=== PATIENT | male | born 1980 | race African-American/Black ===

== ENCOUNTER 2018-03-18 10:25 | Emergency (ER) | END 2018-03-18 13:00 | disposition home or self-care (01) ==

== ENCOUNTER 2018-09-13 01:11 | Emergency (ER) | payer SELFPAY ==
[~2018-09-13] VITALS: Ht 175.3 cm; Wt 88.6 kg
[~2018-09-13 01:11] MED LIST: ACET500C5 PO; BACITUD TOP; ONDA4TAB8 PO
[2018-09-13 01:14] VITALS: BP 141/96; PULSE 61; RESP 18; Ht 175.3 cm; Wt 88.6 kg
== END 2018-09-13 07:50 | disposition left against medical advice (07) ==
LOC: FTE 01:11
DX: Z53.21 Procedure and treatment not carried out due to patient leaving prior to being seen by health care provider (principal)

== ENCOUNTER 2018-10-23 06:08 | Emergency (ER) | payer OTHER ==
[~2018-10-23] VITALS: Ht 172.7 cm; Wt 80.1 kg
[2018-10-23 06:17] VITALS: Ht 172.7 cm; Wt 80.1 kg
--- NOTE | 2018-10-23 07:53 | ERD ---
ER Documentation Chief Complaint Chief Complaint FELL WHILE CLIMBING STAIR,R ANKLE PAIN(BRACE AND CAST ON R ANKLE) X2 HOURS. HPI This is a 38-year-old male who is presenting with persistent right ankle pain. The patient fell previously and fractured his right ankle. The patient is currently in a cast and also has a Ortho shoe to help with mobilization. The patient is scheduled to have his cast removed in approximately 2 weeks. This morning while walking up stairs, the patient reports losing his balance. He fell back and hit his right ankle. He currently endorses ankle pain. The patient also endorses hitting his head mildly. He denies any loss of consciousness. He does not endorse any current headache or vision changes or neck pain. He does not endorse any other trauma or injury. He does not endorse any alleviating or exacerbating factors. The patient denies feeling sick recently. The patient denies fever or chills. The patient does not endorse back pain. The patient denies lightheadedness or dizziness. The patient has had no chest pain or trouble breathing. The patient denies nausea or vomiting. The patient denies abdominal pain. The patient denies changes to bowel movements or urination. The patient has had no focal deficits. The patient has had no weakness or numbness or tingling to the face or extre mities. ROS All systems reviewed and are negative except as per history of present illness. Medications Home Meds Active Scripts Ibuprofen* (Motrin*) 600 Mg Tab, 600 MG PO Q6H PRN for PAIN AND/OR INFLAMMATION, #30 TAB Prov:JOBY LACKEY MD 10/23/18 Bacitracin* (Bacitracin Oint (UD)*) 1 Applic Oint, 1 APPLIC TOP ONCE, #10 PKT APPLY TO Prov:ANDERSON DHILLON PA-C 03/18/18 Acetaminophen* (Tylophen*) 500 Mg Capsule, 1 CAP PO Q6H PRN for PAIN AND OR ELEVATED TEMP, #30 CAP Prov:ANDERSON DHILLON PA-C 03/18/18 Ondansetron Hcl* (Zofran*) 4 Mg Tablet, 4 MG PO Q6H for NAUSEA AND/OR VOMITING, #30 TAB Prov:ANDERSON DHILLON PA-C 03/18/18 Allergies Allergies: Coded Allergies: No Known Allergy (Unverified , 2/23/19) PMhx/Soc History of Surgery: No Hx Neurological Disorder: No Hx Respiratory Disorders: No Hx Cardiac Disorders: No Hx Psychiatric Problems: No Hx Miscellaneous Medical Probl: No Hx Alcohol Use: Yes Hx Substance Use: No Hx Tobacco Use: Yes FmHx Family History: No diabetes Physical Exam Vitals Vital Signs Date Temp Pulse Resp B/P (MAP) Pulse Ox O2 O2 Flow FiO2 Time Delivery Rate 10/23/18 88 18 132/78 100 Room Air 11:03 (96) 10/23/18 97.5 66 16 141/99 98 06:17 (113) Physical Exam Const: No acute distress Head: Atraumatic Eyes: Normal Conjunctiva ENT: Normal External Ears, Nose and Mouth. Neck: Full range of motion. No meningismus. Resp: Clear to auscultation bilaterally Cardio: Regular rate and rhythm, no murmurs Abd: Soft, non tender, non distended. Normal bowel sounds Skin: No petechiae or rashes Back: No midline or flank tenderness Ext: No cyanosis, or edema. Cast to right ankle. Neur: Awake and alert Psych: Normal Mood and Affect Results 24 hrs Current Medications Medications Dose Sig/Alex Start Time Status Last (Trade) Ordered Route PRN Stop Time Admin Dose Reason Admin Ketorolac 15 mg ONCE STAT 10/23/18 DC 10/23/18 Tromethamine IM 08:42 10/23/18 09:09 (Toradol) 08:44 Oxycodone 5 mg ONCE ONCE 10/23/18 DC 10/23/18 HCl PO 09:00 10/23/18 09:09 (Roxicodone) 09:01 Procedures/MDM MDM The patient's presentation warrants further investigation. Previous medical r ecords, if available, were reviewed. IMAGING Imaging and Radiology interpretation reviewed. XR R Ankle FINDINGS: The ankle is in a cast obscures bony detail. Mildly displaced oblique fracture of the distal fibula is seen. There also appears to be a fracture of the posterior malleolus. The ankle mortise is intact. Soft tissue swelling is noted. IMPRESSION: Mildly displaced fracture of the distal fibula and probable fracture of the posterior malleolus. No prior exam is available for comparison. Electronically viewed and signed by Kim Shah Physician on 10/23/2018 07:35 TREATMENT/DISPOSITION The patient presents after a trauma. The patient was evaluated fully without evidence of emergent posttraumatic pathology. The patient has no focal deficits. I've low suspicion for intracranial pathology. I have low suspicion for cerebral ischemia or intracranial hemorrhage. The patient has no cervical spine tenderness. He can move his neck in all directions without any pain. As stated above, he does not have any focal deficits. He is not altered or intoxicated. He does not have any distracting injuries. The patient's cervical spine was cl inically cleared using the Nexus C-spine rule. The patient does not have any saddle anesthesia. He has not been incontinent of urine or stool. He has not had any retention of urine or stool. I have low suspicion for spinal cord injury. There is no evidence of cardiothoracic or abdominal injury. The patient does endorse right ankle pain after the fall this morning. The patient sustained a fracture to the ankle previously and is currently casted. Ankle mortise is intact with only minimal displacement of the distal fibula on the x-ray, likely related to the previous trauma. The patient does not require any reduction. I do feel that the cast is in appropriate position and do not intend to replace it. The patient is neurovascularly intact distally. The patient understands the need to follow-up with the orthopedic doctor for cast removal in 2 weeks. He may also call for an earlier appointment or return to the emergency department if his pain persists. DISCHARGE Upon reevaluation of the patient, symptoms have improved. No emergent diagnoses were identified. At this time, I feel that the patient stable for discharge. The patient was instructed to follow-up with a primary care physician in 1-3 days. The patient will be given strict precautions with which to return to the emergency department. Prescriptions: Ibuprofen The patient's blood pressure was elevated at greater than 120/80 while in the emergency department. The patient was otherwise stable with no evidence of hypertensive urgency or emergency. The patient does not require admission for blood pressure control. I have discussed with the patient the risks of hypertension. I have instructed the patient to return to the ER for any new or worsening symptoms including chest pain, shortness of breath, headache, blurred vision, confusion, nausea, vomiting or LOC. I have advised the patient to follow up with the primary care physician for outpatient monitoring and treatment for hypertension in 1-3 days. Disclaimer: Inadvertent spelling and grammatical errors are likely due to EHR/dictation software use and do not reflect on the overall quality of patient care. Note that the electronic time recorded on this note does not necessarily reflect the actual time of the patient encounter. Departure Diagnosis: Primary Impression: Ankle fracture, right Encounter type: subsequent encounter Fracture type: closed Fracture healing: with routine healing Qualified Codes: S82.891D - Other fracture of right lower leg, subsequent encounter for closed fracture with routine healing Additional Impression: Fall Encounter type: initial encounter Qualified Codes: W19.XXXA - Unspecified fall, initial encounter Condition: Stable Patient Instructions: Fall Prevention, Fracture, Ankle (General) Additional Instructions: Thank you for for coming to [facility] for your care today. Please ask your nurse or provider if you have questions about your care today and do not leave until all your questions have been answered. Please use any medications given as directed and follow-up with your doctor (or the doctor you were referred to) in the next 1-3 days. If you do not have a primary care doctor you may follow up at the [facility] or formerly [facility] clinic (listed below). You may also use motrin and tylenol as needed for fever and/or pain unless instructed otherwise by your provider or nurse. Indications for more urgent follow-up have been discussed, but you may return to the Emergency Department at ANY time for any worrisome or worsening symptoms. If you have abdominal pain, please know that no test or exam you received is perfect and you should follow up within 8 hours for continued pain. If you had any imaging studies today, such as an X-Ray or CT Scan, these studies will be reviewed later by a radiologist. You will be called if there are important findings that were not identified today, so make sure the contact info rmation you provided at registration is correct. If you received any narcotic pain control medicine today, such as Vicodin, Mor phine or Dilaudid, your coordination and judgment may be affected for a number of hours. Please do not drive or operate heavy machinery, and you may want someone to assist you at home. If you were given a prescription for narcotic medication, be aware that it is very addictive- use sparingly and only if necessary. PLEASE SEEK FURTHER EVALUATION AND MANAGEMENT AT YOUR DOCTORS OFFICE WITHIN THE NEXT 1-3 DAYS. IT IS YOUR RESPONSIBILITY TO MAKE AN APPOINTMENT FOR FOLOW-UP CARE. IF YOU HAVE A PRIMARY DOCTOR, PLEASE CALL THEIR OFFICE TO SCHEDULE AN APPOINTMENT FOR FOLLOW UP. IF YOU DO NOT HAVE A PRIMARY DOCTOR YOU CAN CALL OUR PHYSICIAN REFERRAL HOTLINE AT IF YOU CAN NOT AFFORD TO SEE A PHYSICIAN YOU CAN CHOSE FROM THE FOLLOWING [facility] CLINICS: [facility] [address] [facility] [address] [facility] [facility] [address] [facility] [address] [facility]. [facility] [address] [facility]. [facility]. [address] JOBY HIRSCH MD Oct 23, 2018 07:53
[2018-10-23] MEDS ORDERED: KETOROLAC 15 MG INJ IM STA (08:42)
[2018-10-23] MEDS ORDERED: oxyCODONE 5 MG TAB PO ONE (09:00)
[2018-10-23] MEDS ORDERED: IBUP-1542 PO (09:01)
[2018-10-23 11:03] VITALS: BP 132/78; PULSE 88; RESP 18
== END 2018-10-23 11:09 | disposition home or self-care (01) ==
LOC: E/R 06:08
DX: S82.891D Other fracture of right lower leg, subsequent encounter for closed fracture with routine healing (principal); R40.2142 Coma scale, eyes open, spontaneous, at arrival to emergency department; R40.2362 Coma scale, best motor response, obeys commands, at arrival to emergency department; R40.2252 Coma scale, best verbal response, oriented, at arrival to emergency department; W10.9XXD Fall (on) (from) unspecified stairs and steps, subsequent encounter; Y92.9 Unspecified place or not applicable; Z87.891 Personal history of nicotine dependence
CPT/HCPCS: 73610; 96372; J1885; Z7502; Z7610

== ENCOUNTER 2018-11-08 02:14 | Emergency (ER) | payer OTHER ==
[~2018-11-08] VITALS: Ht 172.7 cm; Wt 80.0 kg
[~2018-11-08 02:14] MED LIST changes: +IBUP-1542 PO
[2018-11-08 02:22] VITALS: Ht 172.7 cm; Wt 80.0 kg
[2018-11-08] MEDS ORDERED: HYDROCODONE/APAP (5/325) TAB PO ONE (04:30)
--- NOTE | 2018-11-08 04:33 | ERD ---
ER Documentation Chief Complaint Chief Complaint glf x 1 hour ago, c/o pain right foot/ankle/right shoulder HPI This is a 38-year-old male who presents ED with complaints of right foot and ankle and right shoulder pain status post ground-level fall that occurred 1 hour prior to arrival in ED. Patient states that he previously fell fracturing his right ankle and he was in a cast. Patient states that he had his cast removed yesterday and was put in a walking boot. Patient states that he lost his balance WHILE WALKING causing patient to fall down to the ground injuring his right ankle and right shoulder. Patient did not hit head or have loss of consciousness with this fall. Patient does not any endorse any headaches, blurry vision, changes in vision, dizziness, lightheadedness, tingling, numbness, lack sensation, chest pain, trouble breathing or shortness of breath or other trauma or injury. ROS All systems reviewed and are negative except as per history of present illness. Medications Home Meds Active Scripts Ibuprofen* (Motrin*) 800 Mg Tab, 800 MG PO Q6, #30 TAB Prov:ANUPAMA SCOTT PA-C 11/08/18 Ibuprofen* (Motrin*) 600 Mg Tab, 600 MG PO Q6H PRN for PAIN AND/OR INFLAMMATION, #30 TAB Prov:JOBY LACKEY MD 10/23/18 Bacitracin* (Bacitracin Oint (UD)*) 1 Applic Oint, 1 APPLIC TOP ONCE, #10 PKT APPLY TO Prov:ANDERSON DHILLON PA-C 03/18/18 Acetaminophen* (Tylophen*) 500 Mg Capsule, 1 CAP PO Q6H PRN for PAIN AND OR ELEVATED TEMP, #30 CAP Prov:ANDERSON DHILLON PA-C 03/18/18 Ondansetron Hcl* (Zofran*) 4 Mg Tablet, 4 MG PO Q6H for NAUSEA AND/OR VOMITING, #30 TAB Prov:ANDERSON DHILLON PA-C 03/18/18 Allergies Allergies: Coded Allergies: No Known Allergy (Unverified , 09/13/18) PMhx/Soc History of Surgery: No Hx Neurological Disorder: No Hx Respiratory Disorders: No Hx Cardiac Disorders: No Hx Psychiatric Problems: No Hx Miscellaneous Medical Probl: No Hx Alcohol Use: Yes Hx Substance Use: No Hx Tobacco Use: Yes Smoking Status: Current every day smoker Physical Exam Vitals Vital Signs Date Temp Pulse Resp B/P (MAP) Pulse Ox O2 O2 Flow FiO2 Time Delivery Rate 11/08/18 98.0 102 20 120/69 96 02:22 (86) Physical Exam Const: In mild distress, Head: Atraumatic Eyes: Normal Conjunctiva ENT: Normal External Ears, Nose and Mouth. Neck: Full range of motion. No meningismus. Resp: Clear to auscultation bilaterally Cardio: Regular rate and rhythm, no murmurs Skin: No petechiae or rashes Ext: Lower Extremity -right Skin: No laceration Compartments: Soft Motor: Decreased range of motion at right ankle and foot, full active range of motion hip/knee Sensation: Intact to light touch FDWS/MF/LF/P surfaces. Bones: Moderate tenderness to palpation along the malleoli and foot, nontender pelvis/knee/proximal tibia/ Joints: No effusion or laxity Pulses/Perfusion: 2+ DP, Capillary refill < 2 seconds Neur: Awake and alert Psych: Aggravated Results 24 hrs Current Medications Medications Dose Sig/Alex Start Time Status Last (Trade) Ordered Route PRN Stop Time Admin Dose Reason Admin 1 tab ONCE ONCE 11/08/18 DC 11/08/18 Acetaminophen PO 04:30 04:31 / 11/08/18 04:31 Hydrocodone Bitart (T[place]edo (5)) Procedures/MDM EKG, MONITORS, & DIAGNOSTIC IMAGING: [place] [address] Radiology Main Line: [phone] DIAGNOSTIC IMAGING REPORT Patient: GARCÍA ADKINS : 1980 Age: 38 Sex: M MR #: [id number] DOS: 11/08/18 0417 Ordering MD: ANUPAMA SCOTT PA-C Location: [facility] Room/Bed: PROCEDURE: XR Foot. CLINICAL INDICATION: Fall, pain. TECHNIQUE: AP, lateral and oblique views of the right foot was obtained. The images were reviewed on a PACS workstation. COMPARISON: DR LORD 10/23/2018 FINDINGS: Mild cortical irregularity and increased density of the navicular bone is noted. Displaced oblique fracture of the distal fibula is again seen. There is an ossified density posterior to the posterior malleolus. Bone mineralization is normal. There is ankle soft tissue swelling. IMPRESSION: Question navicular fracture. CT is recommended. Healing displaced oblique fracture of the distal fibula and posterior malleolus. [facility] Physician Bipin Date Time Electronically viewed and signed by Physician Bipin on 11/08/2018 05:54 CS/ CC: ANUPAMA SCOTT PA-C [id number] [place] [address] Radiology Main Line: [phone] DIAGNOSTIC IMAGING REPORT Patient: GARCÍA ADKINS : 1980 Age: 38 Sex: M MR #: [id number] DOS: 11/08/18 0417 Ordering MD: ANUPAMA SCOTT PA-C Location: [facility] Room/Bed: PROCEDURE: XR right shoulder. CLINICAL INDICATION: Fall, pain. TECHNIQUE: AP Internal and external rotation and transscapular views of the right shoulder were performed. COMPARISON: None. FINDINGS: There is normal osseous mineralization and alignment. No acute fracture or osseous lesion is identified. There are normal joints without evidence of arthritis or dislocation. The soft tissues are unremarkable. IMPRESSION: No acute osseous abnormality. [facility] Physician Bipin Date Time Electronically viewed and signed by Physician Bipin on 11/08/2018 05:42 CS/ CC: ANUPAMA SCOTT PA-C [id number] [place] [address] Radiology Main Line: [phone] DIAGNOSTIC IMAGING REPORT Patient: GARCÍA ADKINS : 1980 Age: 38 Sex: M MR #: [id number] DOS: 11/08/18 0420 Ordering MD: ANUPAMA SCOTT PA-C Location: [facility] Room/Bed: PROCEDURE: XR Right Ankle. CLINICAL INDICATION: Fall, pain TECHNIQUE: AP, oblique and lateral views of the right ankle were performed. COMPARISON: None. FINDINGS: There is normal mineralization and alignment. Healing oblique distal fibular and posterior malleolar fractures are seen. Ossified densities are seen inferior to the medial and posterior malleoli. The joints are normal. The mortise is intact. There is mild soft tissue swelling. IMPRESSION: Healing oblique distal fibular and posterior malleolar fractures. Mild soft tissue swelling. [facility] Physician Bipin Date Time Electronically viewed and signed by Physician Bipin on 11/08/2018 06:0 2 CS/ CC: ANUPAMA SCOTT PA-C [id number] ER COURSE: The patient was given Toledo for pain The medication was well tolerated and the patient reports improvement in symptoms. The patient was stable throughout ED course. I kept the patient and/or family informed of laboratory and diagnostic imaging results throughout the emergency room course. The patient was promptly evaluated and a treatment plan was devised based on H&P and other data. This plan was discussed with the patient who agreed and had no further questions or concerns prior to discharge. MEDICAL DECISION MAKING: This is a 38-year-old male who presents ED with complaints of right foot and ankle and right shoulder pain status post ground-level fall that occurred 1 hour prior to arrival in ED. Patient states that he previously fell fracturing his right ankle and he was in a cast. Patient states that he had his cast removed yesterday and was put in a walking boot. Patient states that he lost his balance WHILE WALKING causing patient to fall down to the ground injuring his right ankle and right shoulder. Patient was seen here for similar complaints 14 days ago but at that visit patient had a cast on. Repeat x-ray of right foot shows a questionable navicular fracture and a healing displaced oblique fracture of the distal fibula and posterior malleolus. Patient was advised to continue wearing his walking boot and patient was given crutches in the emergency department. xray shoulder unremarkable. Patient was given copies of x-ray imaging done in the emergency department. Patient was advised to follow-up with his equipment validation specialist. History and physical examination other data not consistent with emergent processes including but not limited to open fracture, dislocation, tendon rupture, ischemia, neurovascular injury, compartment syndrome, septic joint, avascular necrosis, osteomyelitis, necrotizing fasciitis, septic joint, septic arthritis, or other emergent conditions. Patient's vitals are stable and can be managed outpatient with close follow-up. Advised patient to follow-up with primary care in the next 48 hours. Return to ED with any worsening symptoms. DISPOSITION PLAN: We discussed follow up with the patient's primary care doctor within 24 to 48 hours. Patient counseled regarding my diagnostic impression and care plan. Prior to discharge all questions answered. Pt agrees with treatment plan and understands strict return precautions. Precautionary instructions provided including instructions to return to the ER if not improving or for any worsening or changing symptoms or concerns. SPECIALIST FOLLOW UP RECOMMENDED: ortho Patient has been advised to follow up with primary care in 1-2 days. Disclaimer: Inadvertent spelling and grammatical errors are likely due to EHR/dictation software use and do not reflect on the overall quality of patient care. Also, please note that the electronic time recorded on this note does not necessarily reflect the actual time of the patient encounter. Departure Diagnosis: Primary Impression: Ankle pain, right Additional Impression: Foot pain, right Condition: Stable Patient Instructions: Treating Ankle Fractures, Ankle Fracture (Distal Fibula), Closed Referrals: [facility] Additional Instructions: Follow-up with your equipment validation specialist. Patient advised to return to the ED immediately for new or worsening symptoms. Patient advised to follow up with primary care provider in the next 24-48 hours. Patient verbalized understanding and agrees with treatment plan and course of action. If patient has no primary care they may follow up with one of the [facility] listed on the following page or one of the options listed below [facility] + [address] [address] or [facility] [address] [place] [address] or [facility] [address] [place] [address] ANUPAMA SCOTT PA-C Nov 08, 2018 04:33
[2018-11-08] MEDS ORDERED: IBUP800T48 PO (06:07)
[2018-11-08 06:49] VITALS: BP 110/52; PULSE 82; RESP 16
== END 2018-11-08 06:50 | disposition home or self-care (01) ==
LOC: FTE 02:14
DX: M25.571 Pain in right ankle and joints of right foot (principal); M79.671 Pain in right foot; F17.210 Nicotine dependence, cigarettes, uncomplicated
CPT/HCPCS: 73030; 73610; 73630; Z7502; Z7610

== ENCOUNTER 2018-11-10 05:51 | Emergency (ER) | payer OTHER ==
[~2018-11-10] VITALS: Ht 172.7 cm; Wt 79.8 kg
[~2018-11-10 05:51] MED LIST changes: +IBUP800T48 PO
[2018-11-10 05:56] VITALS: BP 169/88; PULSE 87; RESP 18; Ht 172.7 cm; Wt 79.8 kg
--- NOTE | 2018-11-10 06:33 | ERD ---
ER Documentation Chief Complaint Chief Complaint states glf about 3 hours ago, c/o headache, right shoulder pain HPI 38-year-old male, presents to the emergency department, complaining of right- sided headache after a ground-level fall that occurred 3 days ago. The patient has had 3 ED visits during the last 5 days. The patient refers mild dizziness and nausea but denies vomiting or blurred vision. The patient is requesting a CT of the head. ROS All systems reviewed and are negative except as per history of present illness. Medications Home Meds Active Scripts Acetaminophen* (Tylenol*) 325 Mg Tablet, 2 TAB PO Q6 PRN for PAIN AND OR ELEV ATED TEMP, #20 TAB Prov:WILTON SANTIAGO MD 11/10/18 Ibuprofen* (Motrin*) 800 Mg Tab, 800 MG PO Q6, #30 TAB Prov:ANUPAMA SCOTT PA-C 11/08/18 Ibuprofen* (Motrin*) 600 Mg Tab, 600 MG PO Q6H PRN for PAIN AND/OR INFLAMMATION, #30 TAB Prov:JOBY LACKEY MD 10/23/18 Bacitracin* (Bacitracin Oint (UD)*) 1 Applic Oint, 1 APPLIC TOP ONCE, #10 PKT APPLY TO Prov:ANDERSON DHILLON PA-C 03/18/18 Acetaminophen* (Tylophen*) 500 Mg Capsule, 1 CAP PO Q6H PRN for PAIN AND OR ELEVATED TEMP, #30 CAP Prov:ANDERSON DHILLON PA-C 03/18/18 Ondansetron Hcl* (Zofran*) 4 Mg Tablet, 4 MG PO Q6H for NAUSEA AND/OR VOMITING, #30 TAB Prov:ANDERSON DHILLON PA-C 03/18/18 Allergies Allergies: Coded Allergies: No Known Allergy (Unverified , 11/10/18) PMhx/Soc History of Surgery: No Hx Neurological Disorder: No Hx Respiratory Disorders: No Hx Cardiac Disorders: No Hx Psychiatric Problems: No Hx Miscellaneous Medical Probl: No Hx Alcohol Use: Yes Hx Substance Use: No Hx Tobacco Use: Yes Smoking Status: Current every day smoker FmHx Family History: No diabetes, No coronary disease Physical Exam Vitals Vital Signs Date Temp Pulse Resp B/P (MAP) Pulse Ox O2 O2 Flow FiO2 Time Delivery Rate 11/10/18 97.8 87 18 169/88 98 05:56 (115) Physical Exam Const: No acute distress Head: Atraumatic Eyes: Normal Conjunctiva ENT: Normal External Ears, Nose and Mouth. Neck: Full range of motion. No meningismus. Resp: Clear to auscultation bilaterally Cardio: Regular rate and rhythm, no murmurs Abd: Soft, non tender, non distended. Normal bowel sounds Skin: No petechiae or rashes Back: No midline or flank tenderness Ext: Left Ortho boot in place. Neur: Awake and alert Psych: Normal Mood and Affect Results 24 hrs Current Medications Medications Dose Sig/Alex Start Time Status Last (Trade) Ordered Route PRN Stop Time Admin Dose Reason Admin 650 mg ONCE ONCE 11/10/18 DC 11/10/18 Acetaminophen PO 07:00 06:42 (Tylenol 11/10/18 07:01 Tab) Patient: GARCÍA ADKINS : 1980 Age: 38 Sex: M MR #: [id number] DOS: 11/10/18 0632 Ordering MD: WILTON SANTIAGO MD Location: [facility] Room/Bed: PROCEDURE: CT Brain without contrast. CLINICAL INDICATION: Headache, status post trauma. TECHNIQUE: Axial images from the skull base through the vertex without IV contrast. Multiplanar reformatted images were made. Images were reviewed on a PACS workstation. The CTDIvol is 39.54 mGy and the DLP is or 634.23 mGy-cm. One or more of the following dose reduction techniques were used: automated exposure control, adjustment of the mA and/or kV according to patient size, or use of iterative reconstruction technique. DICOM images are available. COMPARISON: 03/18/[address] FINDINGS: No acute intracranial hemorrhage or extraaxial fluid collection has developed. There is no midline shift, mass effect or hydrocephalus. Nicholas-white delineation is maintained. No identifiable acute or recent territoria l infarct. Ventricular size and configuration are stable and within normal limits. Mastoid air cells are clear. Trace left ethmoid opacification is similar to prior. Remaining visualized paranasal sinuses are clear, as is a right-sided contra bullosa. There is again mild leftward curvature of the nasal septum. Intact calvarium. IMPRESSION: No new acute intracranial abnormality including no intracranial hemorrhage, hydrocephalus or recent territorial infarct. Minimal left ethmoid sinus disease again present. Procedures/MDM Vital signs stable, Physical exam unremarkable, neurovascular exam intact. Differential diagnosis include but not limited to: Classical migraine, sinusitis, visual corrective problems, side effects of medications, dehydration, electrolyte imbalance, endocrine/autoimmune medical condition, stress, anxiety, tension headache. Low suspicion for meningitis, [employer]. [employer] tumor, cerebrovascular event. Physical examination and clinical presentation consistent most likely with t ension headache. During the ED course the patient remained stable, no new complaints. Results and clinical impression discussed with patient who agrees with management. The patient is stable to be treated outpatient and will be discharged home, some side effects of prescribed medications (headache, rash, nausea, vomiting, diarrhea, drowsiness, habituation, bleeding, hypertension, interactions with other medications) were reviewed. Follow up with the primary care provider in the next 48h has been recommended. If symptoms persist, worsen or new symptoms develop, then patient should return to the ED immediately. Instructions explained and given directly by me to the patient with acknowledgment and demonstrated understanding. Disclaimer: Inadvertent spelling and grammatical errors are likely due to EHR/dictation software use and do not reflect on the overall quality of patient care. Also, please note that the electronic time recorded on this note does not necessarily reflect the actual time of the patient encounter. Departure Diagnosis: Primary Impression: Acute headache Condition: Stable Additional Instructions: Thank you very much for allowing us to participate in your care. Your health and safety is our top priority at [facility]. The evaluation in the emergency department has been done to rule out an acute emergency, therefore, chronic conditions like malignancy or other diseases have not been evaluated; therefore, you need to follow up with a primary care provider in the next 48h. If symptoms persist, worsen or new symptoms develop, then patient should return to the ED immediately. Call your primary care doctor TOMORROW for an appointment during the next 2-4 days and bring all the information provided. Have prescriptions filled and follow precisely the directions on the label. If the symptoms get worse and your provider is unavailable, return to the Emergency Department immediately. WILTON SANTIAGO MD Nov 10, 2018 06:33
[2018-11-10] MEDS ORDERED: ACET325T33 PO (06:41)
[2018-11-10] MEDS ORDERED: ACETAMINOPHEN 325 MG TAB PO ONE (07:00)
== END 2018-11-10 07:38 | disposition home or self-care (01) ==
LOC: FTE 05:51
DX: R51 Headache (principal); F17.210 Nicotine dependence, cigarettes, uncomplicated
CPT/HCPCS: 70450; Z7502; Z7610

== ENCOUNTER → 2018-11-19 | Emergency (ER) | payer SELFPAY ==
[~2018-11-19] VITALS: Wt 79.9 kg
[~2018-11-19] MED LIST changes: +ACET325T33 PO
[2018-11-19 05:20] VITALS: BP 137/88; PULSE 74; RESP 18
== END | disposition left against medical advice (07) ==
LOC: FTE 05:18
DX: Z53.21 Procedure and treatment not carried out due to patient leaving prior to being seen by health care provider (principal)

== ENCOUNTER 2018-11-24 02:12 | Emergency (ER) | payer SELFPAY | END 2018-11-24 03:29 | disposition left against medical advice (07) | LOC: E/R 02:12 | DX: Z53.21 Procedure and treatment not carried out due to patient leaving prior to being seen by health care provider (principal) ==